=== PATIENT | female | born 1950 | race Caucasian/White ===

== ENCOUNTER → 2016-07-27 | Outpatient (CLI) | payer OTHER | LOC: FIMAGING 12:12 | DX: Z12.31 Encounter for screening mammogram for malignant neoplasm of breast (principal) | CPT/HCPCS: G0202 ==

== ENCOUNTER → 2017-08-31 | Outpatient (CLI) | payer OTHER | LOC: FIMAGING 08:32 | DX: Z12.31 Encounter for screening mammogram for malignant neoplasm of breast (principal) ==

== ENCOUNTER → 2018-09-14 | Outpatient (CLI) | payer OTHER | LOC: FIMAGING 09:34 | DX: Z12.31 Encounter for screening mammogram for malignant neoplasm of breast (principal) ==